=== PATIENT | male | born 1985 | race Caucasian/White ===

== ENCOUNTER 2018-12-30 02:00 | Emergency (ER) | payer SELFPAY ==
[~2018-12-30] VITALS: Ht 172.7 cm; Wt 90.0 kg
[2018-12-30] MEDS ORDERED: MORPHINE SULFATE 4 MG/ML CPJ (NOT FOR IM USE) IV ONE (02:45)
[2018-12-30] MEDS ORDERED: KETAMINE HCL 50 MG/ML 10ML IV ONE (03:00)
[2018-12-30] MEDS ORDERED: PROPOFOL 200MG/20ML VIAL IV ONE (03:00)
[2018-12-30] MEDS ORDERED: TETANUS, DIPHTHERIA, PERTUSSIS VAC/PF 0.5ML (>7YR OLD) IM ONE (03:30)
[2018-12-30 05:29] VITALS: BP 144/76
== END 2018-12-30 06:41 | disposition home or self-care (01) ==
LOC: ER 02:00
DX: S43.005A Unspecified dislocation of left shoulder joint, initial encounter (principal); S00.511A Abrasion of lip, initial encounter; W22.8XXA Striking against or struck by other objects, initial encounter; Y93.89 Activity, other specified; Y92.89 Other specified places as the place of occurrence of the external cause; Y99.8 Other external cause status
CPT/HCPCS: 23650; 70450; 73020; 73030; 90471; 90715; 96374; 99152; 99285; J2270; J2704; J3490; A4565

== ENCOUNTER 2021-12-29 09:58 | Emergency (ER) | payer SELFPAY ==
[~2021-12-29] VITALS: Ht 172.7 cm; Wt 91.0 kg
[2021-12-29] MEDS ORDERED: LIDOCAINE HCL 1% 20ML VIAL (Pyxis) INJ INFIL ONE (10:30)
[2021-12-29] MEDS ORDERED: TETANUS, DIPHTHERIA, PERTUSSIS VAC/PF 0.5ML (>10YR OLD) IM ONE (11:30)
[2021-12-29 11:32] VITALS: BP 115/53
== END 2021-12-29 11:33 | disposition home or self-care (01) ==
LOC: ER 09:58
DX: S61.217A Laceration without foreign body of left little finger without damage to nail, initial encounter (principal); W26.0XXA Contact with knife, initial encounter; Y93.89 Activity, other specified; Y92.89 Other specified places as the place of occurrence of the external cause; Y99.8 Other external cause status
CPT/HCPCS: 12001; 90471; 90715; 99283; J3490